=== PATIENT | female | born 1960 | race Caucasian/White ===

== ENCOUNTER → 2021-04-17 | Emergency (ER) | payer MEDICARE ==
[~2021-04-17] VITALS: Ht 154.9 cm; Wt 48.1 kg
[~2021-04-17] MED LIST: ACETAMINOPHEN 500 MG TABLET PO ONE; AZITHROMYCIN 250 MG TABLET. PO ONE; IV NORMAL SALINE 50ML 50 ML ONE; cefTRIAXone SODIUM 1 GM VIAL ONE
--- NOTE | 2021-04-18 | PHYS DOC ---
Adult General HPI HPI Patient is a 61-year-old female, who presents to the emergency department with a chief complaint of back pain, 6 out of 10, dull and achy in nature, with no radiation after falling out of bed just before coming to the emergency department. Denies any head injury, loss of consciousness, changes in vision, neck pain, numbness/weakness/tingling, chest pain, shortness of breath, abdominal pain, nausea, vomiting. Does endorse right rib pain/thoracic tenderness to palpation in lumbar tenderness to palpation. Review of Systems Review of Systems Review of systems otherwise unremarkable except noted in HPI Physical Exam Physical Exam Constitutional: Well developed, well nourished, no acute distress, non-toxic appearance. [] HENT: Normocephalic, atraumatic, bilateral external ears normal, oropharynx moist, no oral exudates, nose normal. [] Eyes: conjunctiva normal, no discharge. [] Neck: Normal range of motion, no tenderness, supple, no stridor. [] Cardiovascular:Heart rate regular rhythm, no murmur [] Lungs & Thorax: Bilateral breath sounds clear to auscultation, right lateral chest wall tenderness with no obvious bruising or deformities [] Abdomen: soft, no tenderness, no masses, no pulsatile masses. [] Skin: Warm, dry, no erythema, no rash. [] Back: Tenderness around T10 midline and L5 midline, no cervical midline t enderness. No obvious bruising, deformities, neurovascular exam intact Extremities: No tenderness, no cyanosis, no clubbing, ROM intact, no edema. [] Neurologic: Alert and oriented X 3, normal motor function, normal sensory function, no focal deficits noted. [] Psychologic: Affect normal, judgement normal, mood normal. [] EKG EKG [] Radiology/Procedures Radiology/Procedures [] Heart Score C/O Chest Pain: No Risk Factors: Risk Factors: DM, Current or recent (<one month) smoker, HTN, HLP, family history of CAD, obesity. Risk Scores: Risk Factors: DM, Current or recent (<one month) smoker, HTN, HLP, family history of CAD, obesity. Course & Med Decision Making Course & Med Decision Making Patient is a 61-year-old female who presents with back pain after rolling and falling out of bed Vital signs not concerning. Physical exam noted above. Patient given pain medication. Laboratory analysis notable for hyponatremia, HYACINTH, normocytic anemia. Imaging notable for subdural hematoma and right eighth and ninth rib fractures. Discussed all findings with patient and recommended admission for continued evaluation and treatment of her traumatic injuries. Patient grateful, verbalized understanding and agreed with plan of transfer admission to [facility] Jennifer Disclaimer Jennifer Disclaimer This electronic medical record was generated, in whole or in part, using a voice recognition dictation system. Departure Departure: Impression: Primary Impression: Fall from bed Additional Impressions: Back pain Subdural hematoma Rib fractures Hyponatremia HYACINTH (acute kidney injury) Disposition: 02 SHORT TERM HOSPITAL Condition: IMPROVED Referrals: LUIS MARTÍNEZ Patient Instructions: Back Pain, Adult, Fall Prevention and Home Safety Additional Instructions: Thank you for coming into the emergency department tonight and allowing us to take care of you. Please read the attached information carefully to go back over some of the things we discussed. Please begin a Tylenol, ibuprofen and ice regimen as we discussed at home as needed for symptom control. Please call your primary care physician in the morning to go over your ED visit and set up a follow-up as needed. Please come back to the ED with new or concerning symptoms as we discussed. Problem Qualifiers GIAN ESPINOSA MD Apr 18, 2021 00:00
[2021-04-18] MEDS: oxyCODONE IR 5 MG TABLET PO PRN ×2 (00:36→01:15)
--- NOTE | 2021-04-18 00:40 | RAD ---
CT HEAD/BRAIN WO History: Reason: Fall, hit head / Spl. Instructions: / History: . Pain Comparison: None. Technique: Noncontrast CT imaging was performed of the head. Exposure: One or more of the following individualized dose reduction techniques were utilized for thi s examination: 1. Automated exposure control 2. Adjustment of the mA and/or kV according to patient size 3. Use of iterative reconstruction technique. Findings: Mild hyperdensity along the left posterior falx (series 2 image 13) measures 3 mm in thickness. No hy drocephalus. No mass effect. Mild brain parenchymal volume loss. Mild prominence of the lateral ventricles, likely due to central brain parenchymal volume loss. Moderate foci of decreased attenuation within the hemispheric white ma tter, most often due to chronic microvascular ischemia. Imaged orbits are unremarkable. Imaged paranasal sinuses and mastoid air cells are clear. No acute ca lvarial fracture. Impression: 1. Slight hyperdensity along the left posterior falx, may represent acute subdural hematoma. Recomme nd follow-up. MRI can definitively evaluate if indicated. FOR INTERNAL CODING PURPOSES Critical result: Findings discussed with Dr. Terry at 04/18/2021 12:37 AM. RESULT CODE: (C) Electronically signed by: Tray Hester DO (04/18/2021 12:38 AM) [facility]
--- NOTE | 2021-04-18 00:56 | RAD ---
CT CHEST_ABDOMEN_ AND PELVIS WITHOUT CONTRAST History: Fall. Pain. Right rib pain. Thoracic pain. Lumbar pain. Technique: CT of the chest, abdomen and pelvis were performed without contrast. Coronal and sagittal reconstructions were performed. Exposure: One or more of the following individualized dose reduction techniques were utilized for thi s examination: 1. Automated exposure control 2. Adjustment of the mA and/or kV according to patient size 3. Use of iterative reconstruction technique. Comparison: None Findings: Chest: Left chest wall port. Small mediastinal lymph nodes. Coronary artery calcifications. Mild athe romatous plaque within the aorta and branch vessels. No definite pneumothorax although evaluation is degraded due to pulmonary emphysema and bullous disea se. Multifocal reticular opacities and atelectasis. No pleural effusion. Right middle lobe nodular opacity measures 6 mm (series 2 image 77). Abdomen and pelvis: The liver is enlarged. The spleen, adrenal glands, pancreas and gallbladder are u nremarkable. No biliary ductal dilatation. Bilateral urothelial thickening. Mild perinephric edema. No renal calculus. Left renal hypodensity, l ikely cyst. No ureteral or urinary bladder calculus. Normal appendix. No evidence of bowel obstruction. No pathologic lymphadenopathy. No ascites. Atherom atous plaque throughout the nonaneurysmal abdominal aorta and branch vessels. Bones: Postoperative changes right proximal humerus. Acute right lateral eighth and ninth rib fractur es. Mild subcutaneous gas adjacent to the ninth rib fracture. Multiple subacute and chronic rib fract ures bilaterally. No acute fracture thoracolumbar spine. Grade 1 anterolisthesis L5 on S1 due to bilateral pars defects with associated degenerative disc changes. Chronic right inferior and superior pubic rami fractures. Right hip arthroplasty. Impression: Chest CT: 1. Acute right eighth and ninth rib fractures with subcutaneous gas adjacent to the ninth rib fractu re. No definite pneumothorax. 2. Pulmonary emphysema with reticular opacities. 3. Right middle lobe nodular opacity. Recommend 6-[address] follow-up. Abdomen and pelvis CT: 1. Bilateral urothelial thickening, may relate to infectious or inflammatory process. Electronically signed by: Tray Hester DO (04/18/2021 12:54 AM) [facility] [place]
[2021-04-18 01:04] LABS: BASO # 0.1 x10^3/uL (0.0-0.2); BASO % 1 % (0-3); EOS # 0.1 x10^3/uL (0.0-0.7); EOS % 1 % (0-3); HEMATOCRIT 26.6 % (36.0-47.0); HEMOGLOBIN 8.7 g/dL (12.0-15.5); LYMPH # 0.3 x10^3/uL (1.0-4.8); LYMPH % 3 % (24-48); MEAN CORPUSCULAR HEMOGLOBIN 31 pg (25-35); MEAN CORPUSCULAR HGB CONC 33 g/dL (31-37); MEAN CORPUSCULAR VOLUME 94 fL (79-100); MONO # 0.7 x10^3/uL (0.0-1.1); MONO % 6 % (0-9); NEUT # 10.6 x10^3uL (1.8-7.7); NEUT % 90 % (31-73); PLATELET COUNT 302 x10^3/uL (140-400); RED BLOOD COUNT 2.83 x10^6/uL (3.50-5.40); RED CELL DISTRIBUTION WIDTH 18.3 % (11.5-14.5); WHITE BLOOD COUNT 11.7 x10^3/uL (4.0-11.0)
[2021-04-18 01:21] LABS: % BANDS 3 % (0-9); % LYMPHS 8 % (24-48); % MONOS 4 % (0-10); % SEGS 85 % (35-66); PLT ESTIMATE ADEQUATE (ADEQUATE)
[2021-04-18 01:29] LABS: CALCIUM 9.2 mg/dL (8.5-10.1); CREATININE 1.9 mg/dL (0.6-1.0); GFR 26.7
[2021-04-18 01:34] LABS: ALBUMIN 3.1 g/dL (3.4-5.0); ALBUMIN/GLOBULIN RATIO 0.7 (1.0-1.7); TOTAL BILIRUBIN 0.2 mg/dL (0.2-1.0); TOTAL PROTEIN 7.8 g/dL (6.4-8.2)
--- NOTE | 2021-04-18 03:23 | RAD ---
CT CERVICAL SPINE WO History:Reason: Fall, neck pain / Spl. Instructions: / History: Technique: Noncontrast CT imaging was performed of the cervical spine. Multiplanar images are reviewe d. Exposure: One or more of the following individualized dose reduction techniques were utilized for thi s examination: 1. Automated exposure control 2. Adjustment of the mA and/or kV according to patient size 3. Use of iterative reconstruction technique. Comparison: CT chest April 18, 2021. Findings: Grade 1 anterolisthesis C4 on C5. Normal vertebral body height. No acute fracture. Moderate degenerative disc changes most prominent C4-C5 and C5-C6. Advanced facet arthropathy. No hig h-grade canal narrowing. Multilevel neuroforaminal narrowing. Slight compression deformity of T3 superior endplate better characterized on the current examination compared to CT chest previously. Pulmonary emphysema. No pneumothorax. Impression: 1. No acute fracture or subluxation of the cervical spine. 2. Slight T3 superior endplate compression deformity, may represent age-indeterminate fracture. Rhys mmend correlation with point tenderness. If persistent clinical concern, MRI can further evaluate. Electronically signed by: Tray Hester DO (04/18/2021 3:21 AM) [facility]
[2021-04-18 03:30] VITALS: BP 146/67
== END | disposition short-term general hospital (02) ==
LOC: ER 23:51
DX: S06.5X9A Traumatic subdural hemorrhage with loss of consciousness of unspecified duration, initial encounter (principal); S22.41XA Multiple fractures of ribs, right side, initial encounter for closed fracture; N17.9 Acute kidney failure, unspecified; U07.1 COVID-19; E87.1 Hypo-osmolality and hyponatremia; M54.6 Pain in thoracic spine; W06.XXXA Fall from bed, initial encounter; Y93.89 Activity, other specified; Y92.89 Other specified places as the place of occurrence of the external cause; Y99.8 Other external cause status
CPT/HCPCS: 36415; 70450; 71250; 74176; 80053; 82947; 85007; 85025; 85610; 85730; 87426; 96365; 99285; U0003